=== PATIENT | female | born 1945 | race Caucasian/White ===

== ENCOUNTER 2017-05-22 18:57 | Emergency (ER) | payer OTHER ==
[~2017-05-22] VITALS: Ht 147.3 cm; Wt 84.8 kg
--- NOTE | 2017-05-22 19:05 | NUR ---
TO BED 3 AMBULATORY C/O ABDOMINAL PAIN WITH DIARRHEA X1-1 1/2 WEEKS. PT AAOX4 NO ACUTE DISTRESS NOTED, RESP EVEN AND UNLABORED. ER MD AT BEDSIDE TO EVAL PT WITH ORDERS RECEIVED. WILL CARRY OUT ORDERS.
--- NOTE | 2017-05-22 19:10 | NUR ---
URINE SAMPLE COLLECTED AND SENT TO LAB.
[2017-05-22] MEDS ORDERED: MORPHINE SULFATE INJ 2 MG/ML DISP.SYRIN ONE (19:23)
[2017-05-22] MEDS ORDERED: ONDANSETRON HCL/PF 4 MG/2 ML VIAL ONE (19:23)
--- NOTE | 2017-05-22 19:23 | NUR ---
STARTED SL 18G TO L AC, BLOOD DRAWN AND SENT TO LAB.
[2017-05-22 19:30] LABS: APPEARANCE,URINE Clear (CLEAR); BILIRUBIN,URINE Negative (NEGATIVE); BLOOD, URINE Negative Ery/uL (NEGATIVE); COLOR,URINE Yellow (YELLOW); KETONES,URINE Negative (NEGATIVE); LEUKOCYTE ESTERASE ,URINE Negative (NEGATIVE); NITRITE, URINE Negative (NEGATIVE); PROTEIN,URINE Negative (NEGATIVE); UGLUCOSE Negative (NEGATIVE); UROBILINOGEN,URINE 0.2 EU/dL (0.2)
[2017-05-22] MEDS ORDERED: MORPHINE SULFATE INJ 2 MG/ML DISP.SYRIN IV ONE (19:30)
[2017-05-22] MEDS ORDERED: ONDANSETRON HCL/PF 4 MG/2 ML VIAL IVP ONE (19:30)
--- NOTE | 2017-05-22 19:31 | NUR ---
PT TRANSPORTED TO RADIOLOGY FOR CT ABD/PELVIS.
[2017-05-22 19:41] LABS: ALANINE AMINOTRANSFERASE 22 U/L (12-78); ALBUMIN 3.8 g/dL (3.4-5.0); ALKALINE PHOSPHATASE 105 U/L (46-116); ASPARTATE AMINOTRANSFERASE 23 U/L (15-37); BILIRUBIN,DIRECT 0.1 mg/dL (0.0-0.2); BILIRUBIN,TOTAL 0.4 mg/dL (0.2-1.0); CARBON DIOXIDE 27 mmol/L (21-32); CHLORIDE 104 mmol/L (98-107); CREATININE 1.7 mg/dL (0.6-1.3); GLUCOSE 103 mg/dL (74-106); LIPASE 170 U/L (73-393); POTASSIUM 3.6 mmol/L (3.5-5.1); SODIUM SERUM 140 mmol/L (136-145); TOTAL PROTEIN, SERUM 7.2 g/dL (6.4-8.2); UREA NITROGEN, BLOOD 20 mg/dL (7-18)
[2017-05-22 19:46] LABS: BASOPHILS # (AUTO) 0.2 /CMM (0.0-0.2); BASOPHILS % (AUTO) 2.4 % (0.0-2.0); EOSINOPHILS # (AUTO) 0.1 /CMM (0.0-0.7); EOSINOPHILS % (AUTO) 1.4 % (0.0-6.0); HEMATOCRIT 44 % (33-45); HEMOGLOBIN 14.5 g/dL (11.5-14.8); LYMPHOCYTES # (AUTO) 2.6 /CMM (0.8-4.8); LYMPHOCYTES % (AUTO) 28.5 % (20.0-44.0); MEAN CORPUSCULAR HEMOGLOBIN 28 PG (26.0-33.0); MEAN CORPUSCULAR HGB CONC 33 g/dl (31.0-36.0); MEAN CORPUSCULAR VOLUME 86 fL (82-100); MONOCYTES # (AUTO) 0.6 /CMM (0.1-1.30); MONOCYTES % (AUTO) 6.9 % (2.0-12.0); NEUTROPHILS # (AUTO) 5.5 /CMM (1.8-8.9); NEUTROPHILS % (AUTO) 60.8 % (43.0-81.0); PLATELET COUNT (AUTO) 211 /CMM (150-450); RDW COEFFICIENT OF VARIATION 13.1 (11.5-15.0); RED BLOOD CELL COUNT(AUTO) 5.12 MIL/uL (4.0-5.2)
--- NOTE | 2017-05-22 20:11 | NUR ---
IV removed. Catheter intact and site benign. Pressure and 4x4 applied to site. No bleeding noted. Patient discharged to home in stable condition. Written and verbal after care instructions given. Patient verbalizes understanding of instruction. ambulatory with a steady gait noted. Pt aaox4 no acute distress noted, resp even and unlabored. pt son at bedside to take pt home.
[2017-05-22 20:13] VITALS: BP 143/86
== END 2017-05-22 20:13 | disposition home or self-care (01) ==
LOC: ER 19:04
DX: R19.7 Diarrhea, unspecified (principal); I10 Essential (primary) hypertension; Z85.3 Personal history of malignant neoplasm of breast; Z90.10 Acquired absence of unspecified breast and nipple
CPT/HCPCS: 36415; 74176; 80048; 80076; 81001; 83690; 85025; 96374; 99285; A4606; J2270; J2405; 81000-TC; Z7610

== ENCOUNTER 2018-01-27 14:25 | Emergency (ER) | payer OTHER ==
[~2018-01-27] VITALS: Ht 154.9 cm; Wt 88.5 kg
--- NOTE | 2018-01-27 14:53 | NUR ---
PT PRESENTED TO THE ER WITH A C/O FLU LIKE SYMPTOMS X 3 DAYS. PT STATED THAT SHE HAS HEADACHE THAT RADIATES TO THE LEFT SIDE OF NECK, ABD PAIN - INTERMITTENT, LOWER BACK PAIN - INTERMITTENT, DIARRHEA, PRODUCTIVE COUGH WITH OCCASIONAL GREEN SPUTUM. PT IS AFEBRILE, AA&O X4. PT IS EKWOK. PT AMBULATED IN TO BED #11 WITH A CANE. SLOW GATE NOTED. PT IS ON THE MONITOR AND CONTINOUS PULSE OX. VSS. RESP EVEN AND UNLABORED.
--- NOTE | 2018-01-27 15:00 | NUR ---
DR. RAMIREZ IS AT THE BEDSIDE.
--- NOTE | 2018-01-27 15:25 | NUR ---
SHADOW GRAPH WEIGHT OPERATOR IS AT THE BEDSIDE FOR BLOOD DRAW
[2018-01-27 15:33] LABS: BASOPHILS # (AUTO) 0.1 /CMM (0.0-0.2); BASOPHILS % (AUTO) 2.2 % (0.0-2.0); EOSINOPHILS # (AUTO) 0.1 /CMM (0.0-0.7); HEMATOCRIT 40 % (33-45); HEMOGLOBIN 13.2 g/dL (11.5-14.8); LYMPHOCYTES # (AUTO) 1.6 /CMM (0.8-4.8); LYMPHOCYTES % (AUTO) 25.2 % (20.0-44.0); MEAN CORPUSCULAR HEMOGLOBIN 29 PG (26.0-33.0); MEAN CORPUSCULAR HGB CONC 34 g/dl (31.0-36.0); MEAN CORPUSCULAR VOLUME 85 fL (82-100); MONOCYTES # (AUTO) 0.3 /CMM (0.1-1.30); MONOCYTES % (AUTO) 5.2 % (2.0-12.0); NEUTROPHILS # (AUTO) 4.3 /CMM (1.8-8.9); NEUTROPHILS % (AUTO) 65.4 % (43.0-81.0); PLATELET COUNT (AUTO) 207 /CMM (150-450); RDW COEFFICIENT OF VARIATION 14.5 (11.5-15.0); RED BLOOD CELL COUNT(AUTO) 4.62 MIL/uL (4.0-5.2); WHITE BLOOD COUNT (AUTO) 6.4 K/uL (4.3-11.0)
[2018-01-27 15:37] LABS: APPEARANCE,URINE Clear (CLEAR); BILIRUBIN,URINE Negative (NEGATIVE); BLOOD, URINE Negative Ery/uL (NEGATIVE); COLOR,URINE Yellow (YELLOW); KETONES,URINE Negative (NEGATIVE); LEUKOCYTE ESTERASE ,URINE Negative (NEGATIVE); NITRITE, URINE Negative (NEGATIVE); PH,URINE 5.5 (5.0-8.0); PROTEIN,URINE Negative (NEGATIVE); UGLUCOSE Negative (NEGATIVE); UROBILINOGEN,URINE 0.2 EU/dL (0.2)
[2018-01-27 15:50] LABS: CALCIUM, SERUM 9.1 mg/dL (8.5-10.1); CARBON DIOXIDE 26 mmol/L (21-32); CHLORIDE 103 mmol/L (98-107); CREATININE 1.4 mg/dL (0.6-1.3); GLUCOSE 98 mg/dL (74-106); POTASSIUM 3.9 mmol/L (3.5-5.1); SODIUM SERUM 140 mmol/L (136-145); UREA NITROGEN, BLOOD 17 mg/dL (7-18)
[2018-01-27 16:22] LABS: ALANINE AMINOTRANSFERASE 19 U/L (12-78); ALBUMIN 3.4 g/dL (3.4-5.0); ALKALINE PHOSPHATASE 109 U/L (46-116); ASPARTATE AMINOTRANSFERASE 20 U/L (15-37); BILIRUBIN,DIRECT 0.1 mg/dL (0.0-0.2); BILIRUBIN,TOTAL 0.5 mg/dL (0.2-1.0); LIPASE 146 U/L (73-393); TOTAL PROTEIN, SERUM 7.1 g/dL (6.4-8.2)
--- NOTE | 2018-01-27 17:47 | NUR ---
Patient discharged to home in stable condition. Written and verbal after care instructions given. Patient verbalizes understanding of instruction. PT WAS TOLD TO TAKE OTC IMMODIUM, MOTRIN 600 MG Q6HR PRN FOR PAIN, AND TYLENOL #3 THAT SHE HAS AT HOME. PT LEFT VIA WC TO THE LOBBY TO WAIT FOR P/U. VSS.
[2018-01-27 17:48] VITALS: BP 158/88
== END 2018-01-27 17:48 | disposition home or self-care (01) ==
LOC: ER 14:26
DX: R19.7 Diarrhea, unspecified (principal); E78.00 Pure hypercholesterolemia, unspecified; F17.200 Nicotine dependence, unspecified, uncomplicated; I10 Essential (primary) hypertension; K80.20 Calculus of gallbladder without cholecystitis without obstruction; Z85.3 Personal history of malignant neoplasm of breast; Z90.13 Acquired absence of bilateral breasts and nipples; Z90.710 Acquired absence of both cervix and uterus; Z90.89 Acquired absence of other organs
CPT/HCPCS: 36415; 80048-TC; 80076-TC; 81000-TC; 83690-TC; 85025-TC; A4606; Z7610

== ENCOUNTER 2021-09-30 15:27 | Emergency (ER) | payer SELFPAY ==
[~2021-09-30] VITALS: Ht 160 cm; Wt 86.6 kg
--- NOTE | 2021-09-30 15:47 | NUR ---
TO ER BED 2, BIB SON C/O BACK AND LEG PAIN X5DAYS, AAOX3, BREATHING EVEN AND NON LABORED, CONNECTED TO MONITOR
[2021-09-30] MEDS ORDERED: CARI350T PO (16:09)
[2021-09-30] MEDS ORDERED: HYDR-3980 PO (16:09)
[2021-09-30] MEDS ORDERED: KETOROLAC TROMETHAMINE INJ 60 MG/2 ML VIAL IM ONE (16:30)
[2021-09-30] MEDS ORDERED: KETOROLAC TROMETHAMINE INJ 30 MG/ML VIAL ONE (16:33)
[2021-09-30 16:53] VITALS: BP 154/98
== END 2021-09-30 16:54 | disposition home or self-care (01) ==
LOC: ER 15:29
DX: M54.42 Lumbago with sciatica, left side (principal); I10 Essential (primary) hypertension; E03.9 Hypothyroidism, unspecified; F17.200 Nicotine dependence, unspecified, uncomplicated; Z98.890 Other specified postprocedural states; Z79.899 Other long term (current) drug therapy
CPT/HCPCS: 96372; 99283; J1885

== ENCOUNTER 2021-10-15 17:53 | Emergency (ER) | payer SELFPAY ==
[~2021-10-15] VITALS: Ht 149.9 cm; Wt 87.1 kg
[~2021-10-15 17:53] MED LIST: CARI350T PO; HYDR-3980 PO
[2021-10-15 18:19] LABS: BASOPHILS # (AUTO) 0.1 K/uL (0.0-0.2); EOSINOPHILS % (AUTO) 2.3 % (0.0-6.0); HEMATOCRIT 45 % (33-45); HEMOGLOBIN 15.1 g/dL (11.5-14.8); LYMPHOCYTES # (AUTO) 2.5 K/uL (0.8-4.8); LYMPHOCYTES % (AUTO) 26.2 % (20.0-44.0); MEAN CORPUSCULAR HGB CONC 34 g/dl (31.0-36.0); MEAN CORPUSCULAR VOLUME 91 fL (82-100); MONOCYTES # (AUTO) 0.6 K/uL (0.1-1.30); NEUTROPHILS % (AUTO) 64.5 % (43.0-81.0); PLATELET COUNT (AUTO) 252 K/uL (150-450); WHITE BLOOD COUNT (AUTO) 9.4 K/uL (4.3-11.0)
--- NOTE | 2021-10-15 18:29 | NUR ---
BIB SON, C/O R SIDED CHEST PAIN ON AND OFF SINCE LAST NIGHT. ON ROOM AIR, BREATHING EVENLY. CONNECTED TO THE MONITOR AND PULSE OX. KEPT COMFORTABLE, WILL CONTINUE TO MONITOR ACCORDINGLY.
[2021-10-15 18:36] LABS: CALCIUM, SERUM 9.3 mg/dL (8.5-10.1); CARBON DIOXIDE 26 mmol/L (21-32); CHLORIDE 98 mmol/L (98-107); GLUCOSE 100 mg/dL (74-106); POTASSIUM 3.4 mmol/L (3.5-5.1); SODIUM SERUM 135 mmol/L (136-145); UREA NITROGEN, BLOOD 15 mg/dL (7-18)
[2021-10-15 18:41] LABS: ALANINE AMINOTRANSFERASE 29 U/L (12-78); ALBUMIN 4.1 g/dL (3.4-5.0); ALKALINE PHOSPHATASE 101 U/L (46-116); ASPARTATE AMINOTRANSFERASE 39 U/L (15-37); BILIRUBIN,DIRECT 0.1 mg/dL (0.0-0.2); BILIRUBIN,TOTAL 0.5 mg/dL (0.2-1.0); TOTAL PROTEIN, SERUM 7.9 g/dL (6.4-8.2)
--- NOTE | 2021-10-15 19:13 | NUR ---
report given to Yaneth BAZAN.
[2021-10-15] MEDS ORDERED: AMLODIPINE BESYLATE 5 MG TABLET PO ONE (20:00)
[2021-10-15] MEDS ORDERED: CARI350T PO (20:03)
[2021-10-15] MEDS ORDERED: AMLODIPINE BESYLATE 5 MG TABLET ONE (20:03)
[2021-10-15] MEDS ORDERED: HYDR-3980 PO (20:03)
--- NOTE | 2021-10-15 20:53 | NUR ---
Patient discharged to home in stable condition. Written and verbal after care instructions given. Patient verbalizes understanding of instruction.
[2021-10-15 20:54] VITALS: BP 166/97
== END 2021-10-15 20:54 | disposition home or self-care (01) ==
LOC: ER 17:58
DX: R07.89 Other chest pain (principal); I10 Essential (primary) hypertension; F17.200 Nicotine dependence, unspecified, uncomplicated; E03.9 Hypothyroidism, unspecified; Z85.3 Personal history of malignant neoplasm of breast; Z90.49 Acquired absence of other specified parts of digestive tract; Z90.10 Acquired absence of unspecified breast and nipple; Z79.899 Other long term (current) drug therapy
CPT/HCPCS: 36415; 71045-TC; 80048-TC; 80076-TC; 84484-TC; 85025-TC

== ENCOUNTER 2021-11-21 19:29 | Inpatient (IN) | payer MEDICAID ==
[~2021-11-21] VITALS: Ht 160 cm; Wt 77.1 kg
--- NOTE | 2021-11-21 19:50 | NUR ---
patient a/ox4. c/o n/v x2 weeks, has not eaten in 2 weeks, dry heaving. to bed 3. conected to monitor.
[2021-11-21 20:28] LABS: BASOPHILS % (AUTO) 0.4 % (0.0-2.0); EOSINOPHILS % (AUTO) 0.8 % (0.0-6.0); HEMATOCRIT 43 % (33-45); HEMOGLOBIN 14.6 g/dL (11.5-14.8); LYMPHOCYTES # (AUTO) 1.3 K/uL (0.8-4.8); LYMPHOCYTES % (AUTO) 15.3 % (20.0-44.0); MEAN CORPUSCULAR HGB CONC 34 g/dl (31.0-36.0); MEAN CORPUSCULAR VOLUME 91 fL (82-100); MONOCYTES # (AUTO) 0.5 K/uL (0.1-1.30); MONOCYTES % (AUTO) 6.4 % (2.0-12.0); NEUTROPHILS # (AUTO) 6.3 K/uL (1.8-8.9); NEUTROPHILS % (AUTO) 77.1 % (43.0-81.0); PLATELET COUNT (AUTO) 209 K/uL (150-450); RED BLOOD CELL COUNT(AUTO) 4.78 MIL/uL (4.0-5.2); WHITE BLOOD COUNT (AUTO) 8.2 K/uL (4.3-11.0)
[2021-11-21 20:46] LABS: CALCIUM, SERUM 9.3 mg/dL (8.5-10.1); CARBON DIOXIDE 28 mmol/L (21-32); CHLORIDE 94 mmol/L (98-107); CREATININE 2.3 mg/dL (0.6-1.3); GLUCOSE 106 mg/dL (74-106); UREA NITROGEN, BLOOD 34 mg/dL (7-18)
[2021-11-21 20:48] LABS: POTASSIUM 2.7 mmol/L (3.5-5.1)
[2021-11-21 20:49] LABS: SODIUM SERUM 137 mmol/L (136-145)
[2021-11-21 20:51] LABS: ALANINE AMINOTRANSFERASE 33 U/L (12-78); ALBUMIN 3.8 g/dL (3.4-5.0); ALKALINE PHOSPHATASE 81 U/L (46-116); ASPARTATE AMINOTRANSFERASE 42 U/L (15-37); BILIRUBIN,DIRECT 0.7 mg/dL (0.0-0.2); BILIRUBIN,TOTAL 1.5 mg/dL (0.2-1.0); LIPASE 174 U/L (73-393); TOTAL PROTEIN, SERUM 7.1 g/dL (6.4-8.2)
--- NOTE | 2021-11-21 20:51 | NUR ---
PT TAKEN TO CT
[2021-11-21] MEDS ORDERED: IV NS 0.9% 1,000 ML BAG IV ONE (21:00)
--- NOTE | 2021-11-21 21:40 | NUR ---
LAC #18G S/L; PATENT AND INTACT
--- NOTE | 2021-11-21 21:49 | NUR ---
URINE COLLECTED AND SENT TO LAB
[2021-11-21 22:39] LABS: BILIRUBIN,URINE MODERATE (NEGATIVE); LEUKOCYTE ESTERASE ,URINE NEGATIVE (NEGATIVE); NITRITE, URINE NEGATIVE (NEGATIVE); PROTEIN,URINE TRACE mg/dl (NEGATIVE); UGLUCOSE NEGATIVE (NEGATIVE)
[2021-11-21 22:46] LABS: COLOR,URINE DARK YELLOW (YELLOW)
[2021-11-21 22:51] LABS: BACTERIA,URINE Few /HPF (None Seen); RBC,URINE 0-2 /HPF (0-2); SQUAMOUS EPITHELIAL CELL,UR Few /HPF (None Seen)
[2021-11-21 22:52] LABS: MUCUS,URINE Few /LPF (None Seen)
--- NOTE | 2021-11-21 23:15 | NUR ---
IV CHANGED TO LEFT HAND #24
[2021-11-21] MEDS ORDERED: POTASSIUM CHLORIDE 20 MEQ TAB.PRT.SR PO ONE (23:30)
[2021-11-21] MEDS ORDERED: ONDANSETRON HCL/PF 4 MG/2 ML VIAL IV ONE (23:30)
--- NOTE | 2021-11-21 23:39 | NUR ---
MD DURON PAGED
--- NOTE | 2021-11-21 23:43 | NUR ---
PER MD DURON, OKAY FOR [facility] TO ADMIT
[2021-11-22] VITALS: BP 140/81
--- NOTE | 2021-11-22 00:19 | NUR ---
ASSIGNED 310-1
[2021-11-22] MEDS ORDERED: MAG HYDROX/AL HYDROX/SIMETH 30 ML UDC PO PRN (00:30)
[2021-11-22] MEDS ORDERED: MAGNESIUM HYDROXIDE 30 ML UDC PO PRN (00:30)
[2021-11-22] MEDS ORDERED: ACETAMINOPHEN 325 MG TABLET PO PRN (00:30)
[2021-11-22] MEDS ORDERED: HYDROCODONE/APAP 10/325MG TABLET PO PRN (00:30)
[2021-11-22] MEDS ORDERED: ONDANSETRON HCL/PF 4 MG/2 ML VIAL IVP PRN (00:30)
[2021-11-22] MEDS ORDERED: Z GUARD REMEDY 2 OZ OINT TP PRN (00:30)
[2021-11-22] MEDS ORDERED: MORPHINE SULFATE INJ 2 MG/ML DISP.SYRIN IV PRN (00:30)
--- NOTE | 2021-11-22 00:33 | NUR ---
REPORT GIVEN TO MARBIN BAZAN FOR KATHERINE
--- NOTE | 2021-11-22 00:47 | NUR ---
Mo dougherty in ED - 11/22/21 at 0114 by YANE transfered to 310-1 per [facility] protocol
--- NOTE | 2021-11-22 01:14 | NUR ---
ultrasound at bedside
--- NOTE | 2021-11-22 01:15 | NUR ---
[facility] [phone]
--- NOTE | 2021-11-22 01:36 | NUR ---
PT TRASNFERRED TO 3W VIA HOSPITAL PROTOCOL. ALL BELONGINGS WITH PT . VSS
--- NOTE | 2021-11-22 01:45 | NUR ---
MS RN NOTE PATIENT TRANSFERRED TO UNIT AT THIS TIME VIA [facility]. PATIENT A/OX3-4. PATIENT VERY HARD OF HEARING BOTH EARS. NO S/S OF APPARENT DISTRESS. NO C/O PAIN. L. HAND 20G IV ACCESS NOTED IN PLACE-- FLUSHED WITH NS, INTACT AND PATENT. V/S: 140/81, HR-55, RR-18, T-98.9, AND SATURATION 96% ON ROOM AIR. HAVE TO CALL FAMILY MEMBER FOR ADMISSION PROCESS BECAUSE OF PATIENT'S CONDITION. WILL FOLLOW THROUGH ORDERS.
--- NOTE | 2021-11-22 01:45 | NUR ---
MS RN NOTE PATIENT STARTED ON IV FLUIDS 50CC/HR. NEW WRIST BAND ON PATIENT. PATIENT CANE ON BED SIDE. BELONGINGS CHECKED. WILL CONTINUE WITH PLAN OF CARE FOR PATIENT.
--- NOTE | 2021-11-22 01:55 | NUR ---
MS RN NOTE CALLED GRAN DAUGHTER JOSE M # [phone], AND GAVE ME THE CORRECT NUMBER OF HIS DAD, JENNY MOULTON [phone] -- NUMBER IN CHART IS WRONG. CALLED THE NUMBER GRAND DAUGHTER GAVE AND THE DAUGHTER IN LAW ANSWERED (CHELO). ASKED CHELO QUESTIONS FOR ADMITTING PROCESS. PER DAUGHTER IN LAW, THEY WISHED THE PATIENT TO BE FULL CODE. PER CHELO THEY ARE GOING TO NEED A TRANSPORTATION FOR THE PATIENT WHEN DISCHARGED, WILL ENDORSE TO MORNING RN TO ARRANGE CASE MANAGEMENT. PER CHELO PATIENT IS A FORMER SMOKER AND HAS BEEN HOSPITALIZED 3X THIS PAST 30 DAYS. PATIENT VACCINATED WITH UNKNOWN COVID VACCINE AND UP TO DATE WITH FLU AND PNEUMONIA SHOT. MADE FAMILY AWARE OF PATIENT SITUATION AND GAVE THEM UPDATE ABOUT THE PATIENT. FAMILY MADE AWARE OF VISITATION HOURS.
[2021-11-22] MEDS: IV NS 0.9% 1,000 ML IV PRN (02:34)
[2021-11-22] MEDS: ENOXAPARIN SODIUM 30 MG/0.3 ML DISP.SYRIN SQ SCH ×2 (02:35→21:21)
[2021-11-22 02:57] VITALS: BP 140/81
[2021-11-22] MEDS: CARISOPRODOL 350 MG TABLET PO PRN (03:49)
--- NOTE | 2021-11-22 03:51 | NUR ---
MS RN NOTE 1ST DOSE OF SOMA PRN GIVEN AT THIS TIME. PER PATIENT HER L. LEG IS HURTING, PULLING MUSCLE PAIN PATIENT ALSO COMPLAINT OF NOT GETTING SOME SLEEP SO THIS COULD HELP TOO. PER PATIENT SOMA IS GOOD AND WORKS FOR HER, SHE TOOK SOME OF IT BEFORE AND IT REALLY HELPS WITH HER LEG PAIN./ SPASM. WILL REASSESS AND CONTINUE TO MONITOR.
--- NOTE | 2021-11-22 07:32 | NUR ---
MS RN NOTE REPORT GIVEN TO GARRY FOR CONTINUITY OF CARE.
--- NOTE | 2021-11-22 07:35 | NUR ---
ms RN OPENING NOTES RECEIVED PT ASLEEP IN BED, EASY TO AROUSE. PT IS A/O X3- 4. ABLE TO MAKE NEEDS KNOWN. NO S/SX OF DISTRESS NOTED. ON ROOM AIR, TOLERATING WELL. BREATHING IS EVEN AND UNLABORED. NO C/O PAIN AT THIS TIME. IV ACCESS Lhand#20 PATENT AND INTACT WITH NS 0.9% RUNNING AT 50MLS/HR. SAFETY MEASURES IN PLACE WITH BED LOCKED AT LOW POSITION AND SIDE RAILS UP X 2. WILL CONTINUE TO MONITOR PATIENT FOR CHANGES IN CONDITION
[2021-11-22 08:16] VITALS: BP 152/80
[2021-11-22] MEDS ORDERED: PANTOPRAZOLE 40 MG VIAL IV SCH (09:00)
[2021-11-22] MEDS ORDERED: IV NS 0.9% 1,000 ML IV PRN (10:00)
[2021-11-22] MEDS: ATORVASTATIN 10 MG TABLET PO SCH (10:28)
[2021-11-22] MEDS: ASPIRIN 81 MG TAB.CHEW PO SCH (10:28)
[2021-11-22 10:33] LABS: BASOPHILS % (AUTO) 0.6 % (0.0-2.0); EOSINOPHILS % (AUTO) 1.1 % (0.0-6.0); HEMATOCRIT 41 % (33-45); HEMOGLOBIN 13.6 g/dL (11.5-14.8); LYMPHOCYTES # (AUTO) 1.2 K/uL (0.8-4.8); LYMPHOCYTES % (AUTO) 17.9 % (20.0-44.0); MEAN CORPUSCULAR HGB CONC 34 g/dl (31.0-36.0); MEAN CORPUSCULAR VOLUME 90 fL (82-100); MONOCYTES # (AUTO) 0.4 K/uL (0.1-1.30); MONOCYTES % (AUTO) 5.7 % (2.0-12.0); NEUTROPHILS % (AUTO) 74.7 % (43.0-81.0); PLATELET COUNT (AUTO) 187 K/uL (150-450); WHITE BLOOD COUNT (AUTO) 6.7 K/uL (4.3-11.0)
[2021-11-22 11:29] LABS: ALANINE AMINOTRANSFERASE 30 U/L (12-78); ALBUMIN 3.3 g/dL (3.4-5.0); ALKALINE PHOSPHATASE 72 U/L (46-116); ASPARTATE AMINOTRANSFERASE 45 U/L (15-37); BILIRUBIN,DIRECT 0.6 mg/dL (0.0-0.2); BILIRUBIN,TOTAL 1.4 mg/dL (0.2-1.0); CALCIUM, SERUM 8.8 mg/dL (8.5-10.1); CARBON DIOXIDE 26 mmol/L (21-32); CHLORIDE 99 mmol/L (98-107); CREATININE 1.9 mg/dL (0.6-1.3); GLUCOSE 82 mg/dL (74-106); MAGNESIUM 2.3 mg/dL (1.8-2.4); PHOSPHORUS 2.3 mg/dL (2.5-4.9); POTASSIUM 3.1 mmol/L (3.5-5.1); SODIUM SERUM 137 mmol/L (136-145); TOTAL PROTEIN, SERUM 6.3 g/dL (6.4-8.2); UREA NITROGEN, BLOOD 28 mg/dL (7-18)
[2021-11-22 13:21] LABS: CHOLESTEROL 211 mg/dL (<200); HDL CHOLESTEROL 61 mg/dL (40-60); LDL 124 mg/dL (0-99); TRIGLYCERIDES 144 mg/dL (30-150)
[2021-11-22] MEDS ORDERED: K PHOS NEUTRAL 250 MG TABLET PO ONE (15:30)
[2021-11-22 16:17] VITALS: BP 125/78
--- NOTE | 2021-11-22 18:58 | NUR ---
MS RN CLOSING NOTES PT ASLEEP IN BED, EASY TO AROUSE. ABLE TO MAKE NEEDS KNOWN. NO S/SX OF DISTRESS NOTED. ON ROOM AIR, TOLERATING WELL. BREATHING IS EVEN AND UNLABORED. NO C/O PAIN AT THIS TIME. IV ACCESS LHAND#20 PATENT AND INTACT WITH NS 0.9% RUNNING AT 50MLS/HR. SAFETY MEASURES IN PLACE WITH BED LOCKED AT LOW POSITION AND SIDE RAILS UP X 2. WILL ENDORSE CONTINUITY OF CARE TO ONCOMING SHIFT.
--- NOTE | 2021-11-22 19:00 | NUR ---
MS RN OPENING NOTES: RECEIVED REPORT FROM RN. ON ASSESSMENT, NO CHANGE FROM PREVIOUS CLOSING NOTATION. PATIENT COMMUNICATIVE AND VERBALIZING NEEDS EFFECTIVELY. [place]. VSS.
[2021-11-22 20:00] VITALS: BP 135/68
--- NOTE | 2021-11-22 23:52 | NUR ---
MS RN NOTES: AT APPROXIMATELY 2100 PATIENT C/O NAUSEA. OBTAINED ZOFRAN AND ADMINISTERED PER MD ORDER. ON REASSESSMENT, PATIENT DENIED NAUSEA. AT THIS TIME PATIENT EYES CLOSED, RR EVEN AND UNLABORED. NAD, VSS.
--- NOTE | 2021-11-23 07:25 | NUR ---
MS RN OPENING NOTES RECEIVED PT IN BED, AWAKE, A/O X3, VERBALLY RESPONSIVE. ON ROOM AIR, TOLERATING WELL, NO SOB NOTED, NO SIGNS OF ACUTE DISTRESS. WITH IV ACCESS ON LEFT HAND #20G, INTACT AND PATENT, NS @50% RUNNING. NO C/O PAIN OR DISCOMFORT AT THIS TIME. SAFETY MEASURES PROVIDED. BED LOCKED AND IN LOWEST POSITION, SR UP X2, CALL LIGHT PLACED WITHIN EASY REACH. WILL CONTINUE TO MONITOR.
--- NOTE | 2021-11-23 07:33 | NUR ---
MS RN CLOSING NOTES: PATIENT IN BED EYES CLOSED, RR EVEN AND UNLABORED. IN NAD AND VSS AT THIS TIME. IV TO L HAND PATENT AND WITHOUT S/SX OF COMPLICATION. DENIES NAUSEA AND NO EMESIS AT THIS TIME. REPORTED OFF TO ONCOMING RN.
[2021-11-23] MEDS: ASPIRIN 81 MG TAB.CHEW PO SCH (08:23)
[2021-11-23] MEDS: ATORVASTATIN 10 MG TABLET PO SCH (08:23)
[2021-11-23 08:31] LABS: BASOPHILS % (AUTO) 0.4 % (0.0-2.0); EOSINOPHILS % (AUTO) 1.7 % (0.0-6.0); HEMATOCRIT 38 % (33-45); HEMOGLOBIN 12.8 g/dL (11.5-14.8); LYMPHOCYTES # (AUTO) 1.3 K/uL (0.8-4.8); LYMPHOCYTES % (AUTO) 21.4 % (20.0-44.0); MEAN CORPUSCULAR HGB CONC 34 g/dl (31.0-36.0); MEAN CORPUSCULAR VOLUME 91 fL (82-100); MONOCYTES # (AUTO) 0.3 K/uL (0.1-1.30); MONOCYTES % (AUTO) 5.4 % (2.0-12.0); NEUTROPHILS # (AUTO) 4.4 K/uL (1.8-8.9); NEUTROPHILS % (AUTO) 71.1 % (43.0-81.0); PLATELET COUNT (AUTO) 162 K/uL (150-450); RED BLOOD CELL COUNT(AUTO) 4.15 MIL/uL (4.0-5.2); WHITE BLOOD COUNT (AUTO) 6.1 K/uL (4.3-11.0)
[2021-11-23 08:43] LABS: CALCIUM, SERUM 8.7 mg/dL (8.5-10.1); CARBON DIOXIDE 24 mmol/L (21-32); CHLORIDE 100 mmol/L (98-107); CREATININE 1.9 mg/dL (0.6-1.3); GLUCOSE 70 mg/dL (74-106); MAGNESIUM 2.1 mg/dL (1.8-2.4); PHOSPHORUS 3.6 mg/dL (2.5-4.9); SODIUM SERUM 140 mmol/L (136-145); UREA NITROGEN, BLOOD 28 mg/dL (7-18)
[2021-11-23 08:49] LABS: POTASSIUM 2.5 mmol/L (3.5-5.1)
[2021-11-23 10:13] VITALS: BP 147/77
[2021-11-23 10:41] LABS: THYROID STIMULATING HORMONE 204.858 uIU/mL (0.358-3.74)
[2021-11-23] MEDS ORDERED: POTASSIUM CHLORIDE 20 MEQ TAB.PRT.SR PO ONE (11:00)
[2021-11-23] MEDS: LEVOTHYROXINE SODIUM 50 MCG TABLET PO SCH (11:03)
[2021-11-23] MEDS: IV NS 0.9% 1,000 ML IV PRN (13:19)
[2021-11-23 17:38] LABS: POTASSIUM 3.5 mmol/L (3.5-5.1)
--- NOTE | 2021-11-23 18:59 | NUR ---
MS RN CLOSING NOTES PT RESTING IN BED, AWAKE, A/O X3, VERBALLY RESPONSIVE. REMAINS ON ROOM AIR, NO SOB NOTED, BREATHING EVEN AND UNLABORED, NO SIGNS OF ACUTE DISTRESS. WITH IV ACCESS ON RIGHT WRIST #20G SL, INTACT AND PATENT, WITH NS @50ML/HR INFUSING WELL. NO C/O PAIN AT THIS TIME. ASSISTED TO BATHROOM NEEDED. SAFETY MEASURES PROVIDED. BED LOCKED AND IN LOWEST POSITION, SR UP X2, CALL LIGHT PLACED WITHIN EASY REACH. WILL ENDORSE TO NEXT SHIFT.
--- NOTE | 2021-11-23 19:20 | NUR ---
MS RN OPENING NOTES: RECEIVED PATIENT IN BED, AWAKE, A/O X4. NO S/S OF DISTRESS NOTED. NO COMPLAIN OF PAIN. CALL LIGHT WITHIN REACH. BED IN LOWEST AND LOCKED POSITION. BED ALARM ON. AMBULATED WITH ASSISTANCE WITH THE CANE, STEADY.
[2021-11-23 20:00] VITALS: BP 137/93
[2021-11-23] MEDS: ENOXAPARIN SODIUM 30 MG/0.3 ML DISP.SYRIN SQ SCH (22:30)
[2021-11-23] MEDS: CARISOPRODOL 350 MG TABLET PO PRN (22:37)
[2021-11-24 07:30] LABS: BASOPHILS % (AUTO) 0.7 % (0.0-2.0); EOSINOPHILS % (AUTO) 2.5 % (0.0-6.0); HEMATOCRIT 38 % (33-45); HEMOGLOBIN 12.7 g/dL (11.5-14.8); LYMPHOCYTES # (AUTO) 1.2 K/uL (0.8-4.8); LYMPHOCYTES % (AUTO) 20.9 % (20.0-44.0); MEAN CORPUSCULAR HGB CONC 34 g/dl (31.0-36.0); MEAN CORPUSCULAR VOLUME 91 fL (82-100); MONOCYTES # (AUTO) 0.3 K/uL (0.1-1.30); MONOCYTES % (AUTO) 5.4 % (2.0-12.0); NEUTROPHILS # (AUTO) 4.2 K/uL (1.8-8.9); NEUTROPHILS % (AUTO) 70.5 % (43.0-81.0); PLATELET COUNT (AUTO) 169 K/uL (150-450); RED BLOOD CELL COUNT(AUTO) 4.16 MIL/uL (4.0-5.2)
--- NOTE | 2021-11-24 07:30 | NUR ---
MS RN OPENING NOTES RECEIVED PT IN BED, AWAKE, A/O X3, VERBALLY RESPONSIVE. ON ROOM AIR, TOLERATING WELL, NO SOB NOTED, NO SIGNS OF ACUTE DISTRESS. WITH IV ACCESS ON LEFT HAND #20G, INTACT AND PATENT, NS AT 100% RUNNING. NO C/O PAIN OR DISCOMFORT AT THIS TIME. SAFETY MEASURES PROVIDED. BED LOCKED AND IN LOWEST POSITION, SR UP X2, CALL LIGHT PLACED WITHIN EASY REACH. WILL CONTINUE TO MONITOR ACCORDINGLY.
[2021-11-24] MEDS ORDERED: LEVO50TA PO (07:39)
[2021-11-24] MEDS: LEVOTHYROXINE SODIUM 50 MCG TABLET PO SCH (07:39)
[2021-11-24 08:00] VITALS: BP 136/52
[2021-11-24] MEDS ORDERED: POTASSIUM CHLORIDE 20 MEQ TAB.PRT.SR PO ONE (08:00)
[2021-11-24] MEDS: ATORVASTATIN 10 MG TABLET PO SCH (08:34)
[2021-11-24] MEDS: ASPIRIN 81 MG TAB.CHEW PO SCH (08:34)
--- NOTE | 2021-11-24 13:15 | NUR ---
DOT COMPLIANCE COORDINATOR NOTES DISCHARGE PATIENT IN STABLE CONDITION. VITAL SIGNS WITHIN NORMAL LIMITS. HOME INSTRUCTIONS AND FOLLOW UP DISCUSSED TO PATIENT. PATIENT VERBALIZED UNDERSTANDING. PRESCRIPTION HANDED TO PATIENT. IV ACCESS REMOVED. COVERED WITH GAUZE, NO BLEEDING NOTED. ALL BELONGINGS ACCOUNTED AND SIGNED FOR. WHEELED TO LOBBY SAFELY ACCOMPANIED BY (SERGIO) DEN. LEFT UNIT IN STABLE CONDITION. MAD AND CHARGE NURSE AWARE OF DISCHARGE.
[2021-11-24 21:39] LABS: CALCIUM, SERUM 8.7 mg/dL (8.5-10.1); CARBON DIOXIDE 21 mmol/L (21-32); CHLORIDE 103 mmol/L (98-107); CREATININE 1.8 mg/dL (0.6-1.3); GLUCOSE 58 mg/dL (74-106); PHOSPHORUS 2.4 mg/dL (2.5-4.9); POTASSIUM 3.4 mmol/L (3.5-5.1); SODIUM SERUM 140 mmol/L (136-145); UREA NITROGEN, BLOOD 22 mg/dL (7-18)
[2021-11-26 14:06] LABS: *SPE A/G RATIO 1.1 (0.7-1.7); *SPE ALPHA-1-GLOBULIN 0.2 g/dL (0.0-0.4); *SPE ALPHA-2-GLOBULIN 0.8 g/dL (0.4-1.0); *SPE BETA GLOBULIN 0.7 g/dL (0.7-1.3); *SPE M-SPIKE Not Observed g/dL (Not Observed)
== END 2021-11-24 13:00 | disposition home or self-care (01) | DRG 203 ==
LOC: ER 19:32 → TELE 11-22 00:22 → MED 11-22 05:45
PROVIDERS: ADMIT Nurse Practitioner Acute Care; ATTEND Internal Medicine
DX: R07.89 Other chest pain (principal); N17.0 Acute kidney failure with tubular necrosis; E27.8 Other specified disorders of adrenal gland; E03.9 Hypothyroidism, unspecified; Z20.822 Contact with and (suspected) exposure to COVID-19; I12.9 Hypertensive chronic kidney disease with stage 1 through stage 4 chronic kidney disease, or unspecified chronic kidney disease; N18.9 Chronic kidney disease, unspecified; E78.5 Hyperlipidemia, unspecified; Z79.899 Other long term (current) drug therapy; E87.6 Hypokalemia; M54.30 Sciatica, unspecified side; Z85.3 Personal history of malignant neoplasm of breast; Z90.13 Acquired absence of bilateral breasts and nipples; M48.061 Spinal stenosis, lumbar region without neurogenic claudication; G89.29 Other chronic pain; K57.90 Diverticulosis of intestine, part unspecified, without perforation or abscess without bleeding; M25.78 Osteophyte, vertebrae
CPT/HCPCS: 36415; 72131-TC; 76700-TC; 80048-TC; 80053-TC; 80061-TC; 80076-TC; 81001; 82247-TC; 82248-TC; 82533; 82550-TC; 82553; 83690-TC; 83735-TC; 84100-TC; 84132-TC; 84155; 84165; 84439-TC; 84443-TC; 84484-TC; 85025-TC; 87081-TC; 87086-TC; 93307-TC; 97116-TC; 97530-TC; C9113; C9803; G0378; J1650; J2405; J7030

== ENCOUNTER 2023-12-23 13:40 | Emergency (ER) | payer MEDICAID ==
[~2023-12-23] VITALS: Ht 152.4 cm; Wt 74.4 kg
[2023-12-23] MEDS ORDERED: IV NS 0.9% 1,000 ML BAG IV ONE (14:00)
[2023-12-23 14:13] LABS: BASOPHILS % (AUTO) 1.4 % (0.0-2.0); EOSINOPHILS % (AUTO) 0.6 % (0.0-6.0); HEMATOCRIT 40 % (33-45); HEMOGLOBIN 13.3 g/dL (11.5-14.8); LYMPHOCYTES # (AUTO) 1.2 K/uL (0.8-4.8); LYMPHOCYTES % (AUTO) 33.3 % (20.0-44.0); MEAN CORPUSCULAR HEMOGLOBIN 29 PG (26.0-33.0); MEAN CORPUSCULAR HGB CONC 33 g/dl (31.0-36.0); MEAN CORPUSCULAR VOLUME 87 fL (82-100); MONOCYTES # (AUTO) 0.3 K/uL (0.1-1.30); MONOCYTES % (AUTO) 8.5 % (2.0-12.0); NEUTROPHILS % (AUTO) 56.2 % (43.0-81.0); PLATELET COUNT (AUTO) 147 K/uL (150-450); RED BLOOD CELL COUNT(AUTO) 4.63 MIL/uL (4.0-5.2); RED CELL DISTRIBUTION WIDTH 14.2 % (11.5-15.0); WHITE BLOOD COUNT (AUTO) 3.6 K/uL (4.3-11.0)
[2023-12-23 14:21] LABS: CARBON DIOXIDE 24 mmol/L (21-32); CHLORIDE 101 mmol/L (98-107); CREATININE 1.7 mg/dL (0.6-1.3); GLUCOSE 105 mg/dL (74-106); POTASSIUM 3.8 mmol/L (3.5-5.1); SODIUM SERUM 134 mmol/L (136-145); UREA NITROGEN, BLOOD 17 mg/dL (7-18)
[2023-12-23 14:26] LABS: INR 0.97 (0.91-1.10); PARTIAL THROMBOPLASTIN TIME 27.1 SEC (24.3-34.3); PROTHROMBIN TIME 10.3 SECS (9.2-11.1)
[2023-12-23 14:28] LABS: ALANINE AMINOTRANSFERASE 16 U/L (12-78); ALBUMIN 3.6 g/dL (3.4-5.0); ALKALINE PHOSPHATASE 93 U/L (46-116); ASPARTATE AMINOTRANSFERASE 19 U/L (15-37); BILIRUBIN,DIRECT 0.1 mg/dL (0.0-0.2); BILIRUBIN,TOTAL 0.5 mg/dL (0.2-1.0); LIPASE 45 U/L (16-77); TOTAL PROTEIN, SERUM 7.2 g/dL (6.4-8.2)
[2023-12-23 14:30] LABS: LACTIC ACID 0.8 mmol/L (0.4-2.0)
[2023-12-23 18:20] VITALS: BP 138/71; TEMP 98.3; O2SAT 99
== END 2023-12-23 18:21 | disposition home or self-care (01) ==
LOC: ER 13:43
DX: R10.84 Generalized abdominal pain (principal); I10 Essential (primary) hypertension; E03.9 Hypothyroidism, unspecified; Z90.49 Acquired absence of other specified parts of digestive tract
CPT/HCPCS: 99284; 74176; 96360; 96361; 85025; 80048; 83605; 83690; 80076; 36415; 85730; J7030

== ENCOUNTER 2024-01-18 11:52 | Inpatient (IN) | payer MEDICAID ==
[~2024-01-18] VITALS: Ht 157.5 cm; Wt 72.1 kg
[2024-01-18 12:33] LABS: BASOPHILS % (AUTO) 0.4 % (0.0-2.0); EOSINOPHILS # (AUTO) 0.1 K/uL (0.0-0.7); EOSINOPHILS % (AUTO) 1.7 % (0.0-6.0); HEMATOCRIT 38 % (33-45); HEMOGLOBIN 12.6 g/dL (11.5-14.8); LYMPHOCYTES % (AUTO) 14.7 % (20.0-44.0); MEAN CORPUSCULAR HEMOGLOBIN 29 PG (26.0-33.0); MEAN CORPUSCULAR HGB CONC 33 g/dl (31.0-36.0); MEAN CORPUSCULAR VOLUME 87 fL (82-100); MONOCYTES # (AUTO) 0.3 K/uL (0.1-1.30); MONOCYTES % (AUTO) 4.7 % (2.0-12.0); NEUTROPHILS # (AUTO) 5.3 K/uL (1.8-8.9); NEUTROPHILS % (AUTO) 78.5 % (43.0-81.0); PLATELET COUNT (AUTO) 286 K/uL (150-450); RED BLOOD CELL COUNT(AUTO) 4.34 MIL/uL (4.0-5.2); RED CELL DISTRIBUTION WIDTH 14.6 % (11.5-15.0); WHITE BLOOD COUNT (AUTO) 6.7 K/uL (4.3-11.0)
[2024-01-18 12:43] LABS: CALCIUM, SERUM 9.2 mg/dL (8.5-10.1); CARBON DIOXIDE 26 mmol/L (21-32); CHLORIDE 99 mmol/L (98-107); CREATININE 1.6 mg/dL (0.6-1.3); GLUCOSE 110 mg/dL (74-106); POTASSIUM 3.9 mmol/L (3.5-5.1); SODIUM SERUM 135 mmol/L (136-145); UREA NITROGEN, BLOOD 18 mg/dL (7-18)
[2024-01-18] MEDS ORDERED: MORPHINE SULFATE INJ 2 MG/ML DISP.SYRIN ONE (12:46)
[2024-01-18 12:49] LABS: ALANINE AMINOTRANSFERASE 17 U/L (12-78); ALBUMIN 3.2 g/dL (3.4-5.0); ALKALINE PHOSPHATASE 125 U/L (46-116); ASPARTATE AMINOTRANSFERASE 19 U/L (15-37); BILIRUBIN,DIRECT 0.1 mg/dL (0.0-0.2); BILIRUBIN,TOTAL 0.3 mg/dL (0.2-1.0); LIPASE 28 U/L (16-77); TOTAL PROTEIN, SERUM 7.1 g/dL (6.4-8.2)
[2024-01-18] MEDS: MORPHINE SULFATE INJ 2 MG/ML DISP.SYRIN IV ONE (12:50)
[2024-01-18] MEDS: MAGNESIUM CITRATE 296 ML BOTTLE PO ONE (14:00)
[2024-01-18] MEDS ORDERED: NA PHOS,M-B/NA PHOS,DI-BA 1 EA ENEMA RC ONE ×2 (14:21→19:50)
[2024-01-18] MEDS: NA PHOS,M-B/NA PHOS,DI-BA 1 EA ENEMA RC ONE ×2 (14:40→18:20)
[2024-01-18] MEDS ORDERED: ZOLPIDEM TARTRATE 5 MG TABLET PO PRN (17:00)
[2024-01-18] MEDS ORDERED: MAGNESIUM HYDROXIDE 30 ML UDC PO PRN (17:00)
[2024-01-18] MEDS ORDERED: ONDANSETRON HCL/PF 4 MG/2 ML VIAL IVP PRN (17:00)
[2024-01-18] MEDS ORDERED: MAG HYDROX/AL HYDROX/SIMETH 30 ML UDC PO PRN (17:00)
[2024-01-18] MEDS ORDERED: LACTULOSE 10 G/15 ML UDC (PYXIS) ONE (18:07)
[2024-01-18] MEDS ORDERED: DOCUSATE SODIUM 100 MG CAPSULE PO ONE (18:07)
[2024-01-18] MEDS ORDERED: METOPROLOL TARTRATE 25 MG TABLET ONE (18:08)
[2024-01-18] MEDS: METOPROLOL TARTRATE 25 MG TABLET PO SCH (18:20)
[2024-01-18] MEDS: LACTULOSE 10 G/15 ML UDC (PYXIS) GT ONE (18:20)
[2024-01-18] MEDS: DOCUSATE SODIUM LIQ 100 MG/10 ML UDC PO SCH (18:20)
[2024-01-18] MEDS: POLYETHYLENE GLYCOL 3350 17 GM POWD.PACK PO SCH (18:35)
[2024-01-18] MEDS: IV NS 0.9% 1,000 ML IV ONE (18:40)
[2024-01-18 20:00] VITALS: BP 157/86; O2SAT 97
[2024-01-18] MEDS: ATORVASTATIN 10 MG TABLET PO SCH (22:43)
[2024-01-19 07:20] LABS: BASOPHILS % (AUTO) 0.7 % (0.0-2.0); EOSINOPHILS # (AUTO) 0.2 K/uL (0.0-0.7); HEMATOCRIT 37 % (33-45); HEMOGLOBIN 12.1 g/dL (11.5-14.8); LYMPHOCYTES # (AUTO) 1.5 K/uL (0.8-4.8); MEAN CORPUSCULAR HEMOGLOBIN 29 PG (26.0-33.0); MEAN CORPUSCULAR HGB CONC 33 g/dl (31.0-36.0); MEAN CORPUSCULAR VOLUME 87 fL (82-100); MONOCYTES # (AUTO) 0.4 K/uL (0.1-1.30); MONOCYTES % (AUTO) 6.2 % (2.0-12.0); NEUTROPHILS # (AUTO) 4.3 K/uL (1.8-8.9); NEUTROPHILS % (AUTO) 67.1 % (43.0-81.0); PLATELET COUNT (AUTO) 264 K/uL (150-450); RED BLOOD CELL COUNT(AUTO) 4.22 MIL/uL (4.0-5.2); RED CELL DISTRIBUTION WIDTH 14.1 % (11.5-15.0); WHITE BLOOD COUNT (AUTO) 6.4 K/uL (4.3-11.0)
[2024-01-19 07:30] LABS: CALCIUM, SERUM 8.8 mg/dL (8.5-10.1); CHLORIDE 101 mmol/L (98-107); CREATININE 1.4 mg/dL (0.6-1.3); GLUCOSE 86 mg/dL (74-106); MAGNESIUM 2.5 mg/dL (1.8-2.4); PHOSPHORUS 3.2 mg/dL (2.5-4.9); POTASSIUM 3.7 mmol/L (3.5-5.1); SODIUM SERUM 135 mmol/L (136-145); UREA NITROGEN, BLOOD 18 mg/dL (7-18)
[2024-01-19 07:49] LABS: CHOLESTEROL 197 mg/dL (<200); HDL CHOLESTEROL 50 mg/dL (40-60); LDL 117 mg/dL (0-99); TRIGLYCERIDES 95 mg/dL (30-150)
[2024-01-19 08:00] VITALS: BP 155/71; TEMP 97.9; O2SAT 98
[2024-01-19 08:26] LABS: CARBON DIOXIDE 22 mmol/L (21-32)
[2024-01-19] MEDS ORDERED: METO25TA6 PO (08:53)
[2024-01-19] MEDS ORDERED: LEVO88TA5 PO (08:53)
[2024-01-19] MEDS: LEVOTHYROXINE SODIUM 88 MCG TABLET PO SCH (09:16)
[2024-01-19] MEDS: PANTOPRAZOLE 40 MG VIAL IV SCH (09:57)
[2024-01-19] MEDS: LACTULOSE 10 G/15 ML UDC (PYXIS) PO ONE (13:52)
[2024-01-19] MEDS: SENNOSIDES 8.6 MG TABLET PO SCH (13:52)
[2024-01-19] MEDS: Z GUARD REMEDY 4 OZ OINT TP PRN (15:53)
[2024-01-19 16:00] VITALS: BP 174/90; TEMP 98.6; O2SAT 96
[2024-01-19 20:00] VITALS: BP 160/73; TEMP 97.3; O2SAT 97
[2024-01-19] MEDS: ACETAMINOPHEN 325 MG TABLET PO PRN (22:17)
[2024-01-20 06:43] LABS: BASOPHILS % (AUTO) 0.6 % (0.0-2.0); EOSINOPHILS # (AUTO) 0.2 K/uL (0.0-0.7); EOSINOPHILS % (AUTO) 2.5 % (0.0-6.0); HEMATOCRIT 39 % (33-45); HEMOGLOBIN 12.9 g/dL (11.5-14.8); LYMPHOCYTES # (AUTO) 1.4 K/uL (0.8-4.8); LYMPHOCYTES % (AUTO) 20.8 % (20.0-44.0); MEAN CORPUSCULAR HEMOGLOBIN 29 PG (26.0-33.0); MEAN CORPUSCULAR HGB CONC 33 g/dl (31.0-36.0); MEAN CORPUSCULAR VOLUME 87 fL (82-100); MONOCYTES # (AUTO) 0.4 K/uL (0.1-1.30); MONOCYTES % (AUTO) 6.1 % (2.0-12.0); NEUTROPHILS # (AUTO) 4.6 K/uL (1.8-8.9); PLATELET COUNT (AUTO) 265 K/uL (150-450); RED BLOOD CELL COUNT(AUTO) 4.44 MIL/uL (4.0-5.2); RED CELL DISTRIBUTION WIDTH 14.4 % (11.5-15.0); WHITE BLOOD COUNT (AUTO) 6.6 K/uL (4.3-11.0)
[2024-01-20 07:54] LABS: CREATINE KINASE, TOTAL 42 U/L (26-192)
[2024-01-20 08:54] LABS: ALANINE AMINOTRANSFERASE 12 U/L (12-78); ALBUMIN 2.9 g/dL (3.4-5.0); ALKALINE PHOSPHATASE 116 U/L (46-116); ASPARTATE AMINOTRANSFERASE 19 U/L (15-37); BILIRUBIN,TOTAL 0.5 mg/dL (0.2-1.0); CALCIUM, SERUM 9.3 mg/dL (8.5-10.1); CARBON DIOXIDE 22 mmol/L (21-32); CHLORIDE 100 mmol/L (98-107); CREATININE 1.5 mg/dL (0.6-1.3); GLUCOSE 93 mg/dL (74-106); MAGNESIUM 2.4 mg/dL (1.8-2.4); PHOSPHORUS 3.8 mg/dL (2.5-4.9); SODIUM SERUM 136 mmol/L (136-145); TOTAL PROTEIN, SERUM 6.6 g/dL (6.4-8.2); UREA NITROGEN, BLOOD 20 mg/dL (7-18)
[2024-01-20 09:59] VITALS: BP 147/105; TEMP 98.1; O2SAT 89
[2024-01-20] MEDS ORDERED: MINERAL OIL 133 ML (PYXIS) 1 EA ENEMA RC ONE (10:30)
[2024-01-20] MEDS: MINERAL OIL 133 ML (PYXIS) 1 EA ENEMA RC ONE (15:09)
[2024-01-20 16:00] VITALS: BP 157/95; TEMP 97.9; O2SAT 98
[2024-01-20 20:00] VITALS: BP 145/83; TEMP 97.9; O2SAT 97
[2024-01-20] MEDS: PEG 3350/NA SULF,BICARB,CL/KCL 4,000 ML BOTTLE PO ONE (20:11)
[2024-01-20 21:56] VITALS: BP 145/83; TEMP 97.9; O2SAT 97
[2024-01-21 06:54] LABS: BASOPHILS % (AUTO) 0.6 % (0.0-2.0); EOSINOPHILS # (AUTO) 0.2 K/uL (0.0-0.7); EOSINOPHILS % (AUTO) 2.5 % (0.0-6.0); HEMATOCRIT 38 % (33-45); HEMOGLOBIN 12.6 g/dL (11.5-14.8); LYMPHOCYTES # (AUTO) 1.4 K/uL (0.8-4.8); LYMPHOCYTES % (AUTO) 21.2 % (20.0-44.0); MEAN CORPUSCULAR HEMOGLOBIN 29 PG (26.0-33.0); MEAN CORPUSCULAR HGB CONC 33 g/dl (31.0-36.0); MEAN CORPUSCULAR VOLUME 87 fL (82-100); MONOCYTES # (AUTO) 0.4 K/uL (0.1-1.30); MONOCYTES % (AUTO) 6.5 % (2.0-12.0); NEUTROPHILS # (AUTO) 4.7 K/uL (1.8-8.9); NEUTROPHILS % (AUTO) 69.2 % (43.0-81.0); PLATELET COUNT (AUTO) 248 K/uL (150-450); RED BLOOD CELL COUNT(AUTO) 4.39 MIL/uL (4.0-5.2); RED CELL DISTRIBUTION WIDTH 14.3 % (11.5-15.0); WHITE BLOOD COUNT (AUTO) 6.8 K/uL (4.3-11.0)
[2024-01-21 07:00] VITALS: BP 165/87; TEMP 98.4; O2SAT 97
[2024-01-21 07:34] LABS: CARBON DIOXIDE 22 mmol/L (21-32); CHLORIDE 100 mmol/L (98-107); CREATININE 1.6 mg/dL (0.6-1.3); GLUCOSE 76 mg/dL (74-106); MAGNESIUM 2.5 mg/dL (1.8-2.4); PHOSPHORUS 3.9 mg/dL (2.5-4.9); POTASSIUM 3.8 mmol/L (3.5-5.1); SODIUM SERUM 135 mmol/L (136-145); UREA NITROGEN, BLOOD 26 mg/dL (7-18)
[2024-01-21 08:11] LABS: PTH, INTACT 87 pg/mL (15-65)
[2024-01-21] MEDS: PANTOPRAZOLE 40 MG/PACK PACK PO SCH (09:00)
[2024-01-21 11:10] LABS: *SPE A/G RATIO 0.8 (0.7-1.7); *SPE ALBUMIN 2.6 g/dL (2.9-4.4); *SPE ALPHA-1-GLOBULIN 0.2 g/dL (0.0-0.4); *SPE ALPHA-2-GLOBULIN 0.8 g/dL (0.4-1.0); *SPE BETA GLOBULIN 0.8 g/dL (0.7-1.3); *SPE GLOBULIN, TOTAL 3.4 g/dL (2.2-3.9); *SPE M-SPIKE 0.9 g/dL (Not Observed); *SPEGAMMA GLOBULIN 1.6 g/dL (0.4-1.8)
[2024-01-21 11:25] VITALS: BP 165/87
[2024-01-21] MEDS: AMLODIPINE BESYLATE 5 MG TABLET PO SCH (11:25)
[2024-01-21] MEDS ORDERED: PSYL1PAC8 PO (11:55)
[2024-01-21] MEDS ORDERED: AMLO-212 PO (11:55)
[2024-01-21] MEDS ORDERED: DOCU-141 PO (11:55)
[2024-01-21] MEDS ORDERED: POLY17PO29 PO (11:55)
== END 2024-01-21 15:00 | disposition home or self-care (01) | DRG 223 ==
LOC: ER 11:55 → TRANSITION 16:50 → MED 19:17
PROVIDERS: ADMIT Nurse Practitioner Acute Care; ATTEND Nurse Practitioner Family
PROC: 0DCP0ZZ Extirpation of Matter from Rectum, Open Approach (ICD-10-PCS; principal; 2024-01-20)
DX: K59.00 Constipation, unspecified (principal); E03.9 Hypothyroidism, unspecified; E78.00 Pure hypercholesterolemia, unspecified; K57.30 Diverticulosis of large intestine without perforation or abscess without bleeding; I71.40 Abdominal aortic aneurysm, without rupture, unspecified; E78.5 Hyperlipidemia, unspecified; G89.29 Other chronic pain; M54.30 Sciatica, unspecified side; Z90.49 Acquired absence of other specified parts of digestive tract; Z85.3 Personal history of malignant neoplasm of breast; Z90.710 Acquired absence of both cervix and uterus; Z90.10 Acquired absence of unspecified breast and nipple; Z79.899 Other long term (current) drug therapy; I12.9 Hypertensive chronic kidney disease with stage 1 through stage 4 chronic kidney disease, or unspecified chronic kidney disease; N18.9 Chronic kidney disease, unspecified
CPT/HCPCS: 36415; 80048-TC; 80053-TC; 80061-TC; 80076-TC; 82550-TC; 83605-TC; 83690-TC; 83735-TC; 83970; 84100-TC; 84155; 84165; 84484-TC; 85025-TC; A4223; C9113; G0378; J2270; J7030

== ENCOUNTER 2025-01-21 14:46 | Inpatient (IN) | payer MEDICARE, OTHER ==
[~2025-01-21] VITALS: Ht 152.4 cm; Wt 65.8 kg
[~2025-01-21 14:46] MED LIST changes: +AMLO-212 PO; -CARI350T PO; +DOCU-141 PO; -HYDR-3980 PO; +LEVO88TA5 PO; +METO25TA6 PO; +POLY17PO29 PO; +PSYL1PAC8 PO
[2025-01-21] MEDS: ONDANSETRON HCL/PF 4 MG/2 ML VIAL IVP ONE (15:30)
[2025-01-21] MEDS: IV NS 0.9% 1,000 ML BAG IV ONE (15:40)
[2025-01-21] MEDS ORDERED: ONDANSETRON HCL/PF 4 MG/2 ML VIAL ONE (15:46)
[2025-01-21] MEDS ORDERED: MORPHINE SULFATE INJ 4 MG/ML DISP.SYRIN ONE (15:46)
[2025-01-21 15:51] LABS: BASOPHILS % (AUTO) 0.1 % (0.0-2.0); HEMATOCRIT 31 % (33-45); HEMOGLOBIN 10.3 g/dL (11.5-14.8); LYMPHOCYTES # (AUTO) 0.6 K/uL (0.8-4.8); LYMPHOCYTES % (AUTO) 5.2 % (20.0-44.0); MEAN CORPUSCULAR HEMOGLOBIN 28 PG (26.0-33.0); MEAN CORPUSCULAR HGB CONC 33 g/dl (31.0-36.0); MEAN CORPUSCULAR VOLUME 84 fL (82-100); MONOCYTES # (AUTO) 0.8 K/uL (0.1-1.30); MONOCYTES % (AUTO) 6.3 % (2.0-12.0); NEUTROPHILS # (AUTO) 10.8 K/uL (1.8-8.9); NEUTROPHILS % (AUTO) 88.4 % (43.0-81.0); PLATELET COUNT (AUTO) 265 K/uL (150-450); RED BLOOD CELL COUNT(AUTO) 3.73 MIL/uL (4.0-5.2); RED CELL DISTRIBUTION WIDTH 14.1 % (11.5-15.0); WHITE BLOOD COUNT (AUTO) 12.3 K/uL (4.3-11.0)
[2025-01-21] MEDS: MORPHINE SULFATE INJ 2 MG/ML DISP.SYRIN IV ONE (15:53)
[2025-01-21 15:59] LABS: CALCIUM, SERUM 8.8 mg/dL (8.5-10.1); CREATININE 2.7 mg/dL (0.6-1.3); POTASSIUM 3.8 mmol/L (3.5-5.1)
[2025-01-21 16:05] LABS: ALBUMIN 2.4 g/dL (3.4-5.0); BILIRUBIN,DIRECT 0.3 mg/dL (0.0-0.2); BILIRUBIN,TOTAL 0.6 mg/dL (0.2-1.0); TOTAL PROTEIN, SERUM 7.7 g/dL (6.4-8.2)
[2025-01-21] MEDS ORDERED: AMLO-212 PO (16:44)
[2025-01-21] MEDS ORDERED: DIAZ10TA4 PO (16:44)
[2025-01-21] MEDS ORDERED: ATOR20TA PO (16:44)
[2025-01-21] MEDS: CEFEPIME 1 GM in IV D5W 50 ML IV ONE (18:00)
[2025-01-21] MEDS ORDERED: CEFEPIME 1 GM VIAL ONE (18:04)
[2025-01-21] MEDS: ACETAMINOPHEN ES 500 MG TABLET PO ONE (18:27)
[2025-01-21] MEDS ORDERED: Z GUARD REMEDY 4 OZ OINT TP PRN (18:30)
[2025-01-21] MEDS ORDERED: ACETAMINOPHEN 325 MG TABLET PO PRN (18:30)
[2025-01-21] MEDS ORDERED: ONDANSETRON HCL/PF 4 MG/2 ML VIAL IVP PRN (18:30)
[2025-01-21] MEDS: VANCOMYCIN 1 GM in IV D5W 250 ML IV ONE (18:30)
[2025-01-21] MEDS ORDERED: MAG HYDROX/AL HYDROX/SIMETH 30 ML UDC PO PRN (18:30)
[2025-01-21 19:07] LABS: APPEARANCE,URINE SLIGHTLY CLOUDY (CLEAR); BILIRUBIN,URINE NEGATIVE (NEGATIVE); BLOOD, URINE 1+ Ery/uL (NEGATIVE); COLOR,URINE YELLOW (YELLOW); KETONES,URINE NEGATIVE (NEGATIVE); LEUKOCYTE ESTERASE ,URINE 3+ (NEGATIVE); NITRITE, URINE NEGATIVE (NEGATIVE); PROTEIN,URINE 2+ mg/dl (NEGATIVE); UGLUCOSE NEGATIVE (NEGATIVE)
[2025-01-21 19:16] LABS: BACTERIA,URINE Many /HPF (None Seen); SQUAMOUS EPITHELIAL CELL,UR Few /HPF (None Seen)
[2025-01-21 19:20] LABS: ADD URINE CULTURE YES; WBC,URINE TOO NUMEROUS TO COUN /HPF (0-3)
[2025-01-22] MEDS ORDERED: ALBUTEROL FS 2.5 MG/3 ML VIAL.NEB NEB PRN (03:00)
[2025-01-22] MEDS: DEXTROSE 50%-WATER 50 ML DISP.SYRIN ONE (03:05)
[2025-01-22 03:30] VITALS: BP 160/90; TEMP 98.2; O2SAT 78
[2025-01-22 04:00] VITALS: BP 138/71; TEMP 99.1; O2SAT 98
[2025-01-22] MEDS: CEFEPIME 1 GM in IV D5W 50 ML IV SCH (06:00)
[2025-01-22] MEDS ORDERED: CEFEPIME 1 GM VIAL ONE (06:02)
[2025-01-22] MEDS: LEVOTHYROXINE SODIUM 88 MCG TABLET PO SCH (07:30)
[2025-01-22 07:37] LABS: BASOPHILS % (AUTO) 0.2 % (0.0-2.0); HEMATOCRIT 31 % (33-45); LYMPHOCYTES # (AUTO) 0.6 K/uL (0.8-4.8); LYMPHOCYTES % (AUTO) 5.6 % (20.0-44.0); MEAN CORPUSCULAR HEMOGLOBIN 27 PG (26.0-33.0); MEAN CORPUSCULAR HGB CONC 32 g/dl (31.0-36.0); MEAN CORPUSCULAR VOLUME 85 fL (82-100); MONOCYTES # (AUTO) 0.7 K/uL (0.1-1.30); MONOCYTES % (AUTO) 5.9 % (2.0-12.0); NEUTROPHILS # (AUTO) 10.2 K/uL (1.8-8.9); NEUTROPHILS % (AUTO) 88.3 % (43.0-81.0); PLATELET COUNT (AUTO) 237 K/uL (150-450); RED BLOOD CELL COUNT(AUTO) 3.64 MIL/uL (4.0-5.2); RED CELL DISTRIBUTION WIDTH 14.4 % (11.5-15.0); WHITE BLOOD COUNT (AUTO) 11.6 K/uL (4.3-11.0)
[2025-01-22 07:50] LABS: CALCIUM, SERUM 8.2 mg/dL (8.5-10.1); CREATININE 2.5 mg/dL (0.6-1.3); MAGNESIUM 1.9 mg/dL (1.8-2.4); PHOSPHORUS 2.6 mg/dL (2.5-4.9); POTASSIUM 3.7 mmol/L (3.5-5.1)
[2025-01-22 08:00] VITALS: BP 153/83; TEMP 98.7; O2SAT 100
[2025-01-22 08:35] LABS: THYROID STIMULATING HORMONE 0.09 uIU/mL (0.358-3.74)
[2025-01-22] MEDS: PANTOPRAZOLE 40 MG VIAL IV SCH (09:23)
[2025-01-22] MEDS: AMLODIPINE BESYLATE 5 MG TABLET PO SCH (09:24)
[2025-01-22] MEDS: METOPROLOL TARTRATE 25 MG TABLET PO SCH (09:24)
[2025-01-22] MEDS: ATORVASTATIN 10 MG TABLET PO SCH (09:26)
[2025-01-22 12:00] VITALS: BP 136/75; TEMP 97.9; O2SAT 99
[2025-01-22] MEDS ORDERED: IV NS 0.9% 1,000 ML IV SCH (13:00)
[2025-01-22 16:00] VITALS: BP 146/80; TEMP 99.8; O2SAT 96
[2025-01-22 20:00] VITALS: BP 118/62; TEMP 98.2; O2SAT 100
[2025-01-23] VITALS: BP 128/69; TEMP 98.2; O2SAT 100
[2025-01-23 04:00] VITALS: BP 135/89; TEMP 97.8; O2SAT 99
[2025-01-23 06:29] LABS: BASOPHILS % (AUTO) 0.2 % (0.0-2.0); EOSINOPHILS % (AUTO) 0.3 % (0.0-6.0); HEMATOCRIT 32 % (33-45); HEMOGLOBIN 10.4 g/dL (11.5-14.8); LYMPHOCYTES # (AUTO) 1.3 K/uL (0.8-4.8); LYMPHOCYTES % (AUTO) 8.9 % (20.0-44.0); MEAN CORPUSCULAR HEMOGLOBIN 28 PG (26.0-33.0); MEAN CORPUSCULAR HGB CONC 33 g/dl (31.0-36.0); MEAN CORPUSCULAR VOLUME 84 fL (82-100); MONOCYTES # (AUTO) 0.9 K/uL (0.1-1.30); MONOCYTES % (AUTO) 6.4 % (2.0-12.0); NEUTROPHILS # (AUTO) 12.6 K/uL (1.8-8.9); NEUTROPHILS % (AUTO) 84.2 % (43.0-81.0); PLATELET COUNT (AUTO) 231 K/uL (150-450); RED BLOOD CELL COUNT(AUTO) 3.79 MIL/uL (4.0-5.2); RED CELL DISTRIBUTION WIDTH 14.2 % (11.5-15.0); WHITE BLOOD COUNT (AUTO) 14.9 K/uL (4.3-11.0)
[2025-01-23 06:59] LABS: CALCIUM, SERUM 8.9 mg/dL (8.5-10.1); CREATININE 2.4 mg/dL (0.6-1.3); POTASSIUM 4.2 mmol/L (3.5-5.1)
[2025-01-23 08:00] VITALS: BP 149/69; TEMP 98.2; O2SAT 100
[2025-01-23] MEDS: LEVOTHYROXINE SODIUM 50 MCG TABLET PO SCH (08:29)
[2025-01-23 12:00] VITALS: BP 124/54; TEMP 98.6; O2SAT 100
[2025-01-23 16:00] VITALS: BP 117/79; TEMP 98.6; O2SAT 100
[2025-01-23] MEDS ORDERED: VANCOMYCIN 750 MG in IV D5W 250 ML IV SCH (19:00)
[2025-01-23] MEDS: VANCOMYCIN 1 GM in IV D5W 250ml IV SCH (19:40)
[2025-01-23 20:00] VITALS: BP 139/80; TEMP 99.3; O2SAT 100
[2025-01-24] VITALS: BP 151/85; TEMP 99; O2SAT 96
[2025-01-24 04:00] VITALS: BP 133/79; TEMP 98.8; O2SAT 95
[2025-01-24] MEDS: MAGNESIUM HYDROXIDE 30 ML UDC PO PRN (05:51)
[2025-01-24 07:04] LABS: BASOPHILS % (AUTO) 0.1 % (0.0-2.0); EOSINOPHILS # (AUTO) 0.1 K/uL (0.0-0.7); EOSINOPHILS % (AUTO) 0.7 % (0.0-6.0); HEMATOCRIT 32 % (33-45); HEMOGLOBIN 10.3 g/dL (11.5-14.8); MEAN CORPUSCULAR HEMOGLOBIN 27 PG (26.0-33.0); MEAN CORPUSCULAR HGB CONC 32 g/dl (31.0-36.0); MEAN CORPUSCULAR VOLUME 86 fL (82-100); MONOCYTES # (AUTO) 0.7 K/uL (0.1-1.30); MONOCYTES % (AUTO) 5.4 % (2.0-12.0); NEUTROPHILS # (AUTO) 11.1 K/uL (1.8-8.9); NEUTROPHILS % (AUTO) 85.8 % (43.0-81.0); PLATELET COUNT (AUTO) 228 K/uL (150-450); RED BLOOD CELL COUNT(AUTO) 3.77 MIL/uL (4.0-5.2); RED CELL DISTRIBUTION WIDTH 14.6 % (11.5-15.0); WHITE BLOOD COUNT (AUTO) 12.9 K/uL (4.3-11.0)
[2025-01-24 07:21] LABS: CALCIUM, SERUM 8.7 mg/dL (8.5-10.1); CREATININE 2.1 mg/dL (0.6-1.3); POTASSIUM 3.9 mmol/L (3.5-5.1)
[2025-01-24 09:10] LABS: THYROID STIMULATING HORMONE 0.1 uIU/mL (0.358-3.74)
[2025-01-24] MEDS: PANTOPRAZOLE 40 MG TABLET.DR PO SCH (09:34)
[2025-01-24 11:57] VITALS: BP 149/78; TEMP 98.2; O2SAT 95
[2025-01-24 12:00] VITALS: BP 149/78; TEMP 98.2; O2SAT 95
[2025-01-24 16:00] VITALS: BP 126/82; TEMP 98.6; O2SAT 96
[2025-01-24 16:08] LABS: BASOPHILS # (AUTO) 0.1 K/uL (0.0-0.2); BASOPHILS % (AUTO) 0.7 % (0.0-2.0); EOSINOPHILS # (AUTO) 0.1 K/uL (0.0-0.7); EOSINOPHILS % (AUTO) 0.9 % (0.0-6.0); HEMATOCRIT 29 % (33-45); HEMOGLOBIN 9.5 g/dL (11.5-14.8); MEAN CORPUSCULAR HEMOGLOBIN 27 PG (26.0-33.0); MEAN CORPUSCULAR HGB CONC 33 g/dl (31.0-36.0); MEAN CORPUSCULAR VOLUME 82 fL (82-100); MONOCYTES # (AUTO) 0.6 K/uL (0.1-1.30); MONOCYTES % (AUTO) 5.8 % (2.0-12.0); NEUTROPHILS # (AUTO) 8.9 K/uL (1.8-8.9); NEUTROPHILS % (AUTO) 83.6 % (43.0-81.0); PLATELET COUNT (AUTO) 252 K/uL (150-450); RED BLOOD CELL COUNT(AUTO) 3.46 MIL/uL (4.0-5.2); RED CELL DISTRIBUTION WIDTH 14.1 % (11.5-15.0); WHITE BLOOD COUNT (AUTO) 10.6 K/uL (4.3-11.0)
[2025-01-24 16:23] LABS: ALBUMIN 1.6 g/dL (3.4-5.0); BILIRUBIN,TOTAL 0.4 mg/dL (0.2-1.0); CALCIUM, SERUM 8.2 mg/dL (8.5-10.1); CREATININE 2.1 mg/dL (0.6-1.3); MAGNESIUM 2.2 mg/dL (1.8-2.4); PHOSPHORUS 2.6 mg/dL (2.5-4.9); POTASSIUM 4.4 mmol/L (3.5-5.1); TOTAL PROTEIN, SERUM 5.9 g/dL (6.4-8.2)
[2025-01-24 17:06] LABS: INR 1.18 (0.91-1.10); PARTIAL THROMBOPLASTIN TIME 27.8 SEC (24.3-34.3); PROTHROMBIN TIME 12.4 SECS (9.2-11.1)
[2025-01-24 20:00] VITALS: BP 153/81; TEMP 98.2; O2SAT 93
[2025-01-25] VITALS: BP 165/86; TEMP 98.1; O2SAT 99
[2025-01-25 04:00] VITALS: BP 174/80; TEMP 98.2; O2SAT 94
[2025-01-25 07:12] LABS: CALCIUM, SERUM 8.8 mg/dL (8.5-10.1); CREATININE 1.8 mg/dL (0.6-1.3); POTASSIUM 4.2 mmol/L (3.5-5.1)
[2025-01-25] MEDS: LEVOTHYROXINE SODIUM 50 MCG TABLET PO SCH (07:54)
[2025-01-25 08:00] VITALS: BP 165/91; TEMP 97.7; O2SAT 97
[2025-01-25] MEDS: CLOPIDOGREL BISULFATE 75 MG TABLET PO SCH (09:14)
[2025-01-25] MEDS: ASPIRIN EC 81 MG TABLET.DR PO SCH (09:15)
[2025-01-25 12:00] VITALS: BP 145/68; TEMP 97.5; O2SAT 100
[2025-01-25 12:19] LABS: THYROID STIMULATING HORMONE 0.16 uIU/mL (0.358-3.74)
[2025-01-25 16:00] VITALS: BP 148/77; TEMP 97.6; O2SAT 96
[2025-01-25 20:00] VITALS: BP 136/74; TEMP 97.7; O2SAT 98
[2025-01-26] VITALS: BP 145/88; TEMP 97.5; O2SAT 97
[2025-01-26 04:00] VITALS: BP 154/88; TEMP 97.7; O2SAT 96
[2025-01-26 06:49] LABS: BASOPHILS % (AUTO) 0.1 % (0.0-2.0); EOSINOPHILS # (AUTO) 0.2 K/uL (0.0-0.7); EOSINOPHILS % (AUTO) 2.5 % (0.0-6.0); HEMATOCRIT 34 % (33-45); HEMOGLOBIN 10.9 g/dL (11.5-14.8); LYMPHOCYTES % (AUTO) 13.7 % (20.0-44.0); MEAN CORPUSCULAR HEMOGLOBIN 27 PG (26.0-33.0); MEAN CORPUSCULAR HGB CONC 32 g/dl (31.0-36.0); MEAN CORPUSCULAR VOLUME 86 fL (82-100); MONOCYTES # (AUTO) 0.7 K/uL (0.1-1.30); MONOCYTES % (AUTO) 9.2 % (2.0-12.0); NEUTROPHILS # (AUTO) 5.7 K/uL (1.8-8.9); NEUTROPHILS % (AUTO) 74.5 % (43.0-81.0); PLATELET COUNT (AUTO) 265 K/uL (150-450); RED BLOOD CELL COUNT(AUTO) 3.99 MIL/uL (4.0-5.2); RED CELL DISTRIBUTION WIDTH 14.8 % (11.5-15.0); WHITE BLOOD COUNT (AUTO) 7.6 K/uL (4.3-11.0)
[2025-01-26 07:18] LABS: CALCIUM, SERUM 8.9 mg/dL (8.5-10.1); CREATININE 1.7 mg/dL (0.6-1.3); MAGNESIUM 2.5 mg/dL (1.8-2.4); PHOSPHORUS 2.6 mg/dL (2.5-4.9)
[2025-01-26 08:00] VITALS: BP 108/78; TEMP 97.5; O2SAT 96
[2025-01-26 12:00] VITALS: BP 141/69; TEMP 97.7; O2SAT 96
[2025-01-26 12:07] LABS: FOLIC ACID 4.3 ng/mL (>3.0)
[2025-01-26 12:49] VITALS: BP 141/69
[2025-01-26] MEDS ORDERED: CLOP75TA15 PO (16:44)
[2025-01-26] MEDS ORDERED: ASPI-1169 PO (16:44)
== END 2025-01-26 15:17 | disposition left against medical advice (07) | DRG 871 ==
LOC: ER 14:52 → MED 01-22 01:35 → TELE 01-22 02:27 → TELE-TD 01-22 03:25 → TELE1 01-22 16:09
PROVIDERS: ATTEND Student in an Organized Health Care Education/Training Program
DX: A41.9 Sepsis, unspecified organism (principal); I63.9 Cerebral infarction, unspecified; J96.01 Acute respiratory failure with hypoxia; E44.0 Moderate protein-calorie malnutrition; N39.0 Urinary tract infection, site not specified; E87.1 Hypo-osmolality and hyponatremia; N17.9 Acute kidney failure, unspecified; D62 Acute posthemorrhagic anemia; J98.11 Atelectasis; J90 Pleural effusion, not elsewhere classified; D50.9 Iron deficiency anemia, unspecified; E13.9 Other specified diabetes mellitus without complications; I12.9 Hypertensive chronic kidney disease with stage 1 through stage 4 chronic kidney disease, or unspecified chronic kidney disease; N18.9 Chronic kidney disease, unspecified; Z85.3 Personal history of malignant neoplasm of breast; E03.9 Hypothyroidism, unspecified; E78.00 Pure hypercholesterolemia, unspecified; Z79.890 Hormone replacement therapy; Z79.899 Other long term (current) drug therapy; E78.5 Hyperlipidemia, unspecified; Z68.33 Body mass index [BMI] 33.0-33.9, adult; E66.9 Obesity, unspecified; E88.09 Other disorders of plasma-protein metabolism, not elsewhere classified; B96.89 Other specified bacterial agents as the cause of diseases classified elsewhere; K57.30 Diverticulosis of large intestine without perforation or abscess without bleeding; K59.00 Constipation, unspecified; M89.8X9 Other specified disorders of bone, unspecified site; N27.1 Small kidney, bilateral
CPT/HCPCS: 36415; 70450-TC; 70496-TC; 70498-TC; 71045-TC; 73060-TC; 76770-TC; 80048-TC; 80053-TC; 80061-TC; 80076-TC; 80202-TC; 81001; 82607-TC; 82728-TC; 82962-TC; 83540-TC; 83605-TC; 83615-TC; 83690-TC; 83735-TC; 83921; 84100-TC; 84425; 84439-TC; 84443-TC; 84481; 84484-TC; 85025-TC; 85610-TC; 85730-TC; 87040-TC; 92526; 92611-TC; 93307-TC; 94799-TC; 97110-TC; 97112-TC; 97116-TC; 97164; 97530-TC; 97535-TC; A4223; G0378; J0692; J2270; J2405; J2470; J3370; J3371; J7030; J7050; J7060